=== PATIENT | female | born 1990 | race African-American/Black ===

== ENCOUNTER 2017-10-23 07:07 | Emergency (ER) | payer SELFPAY ==
[~2017-10-23] VITALS: Ht 170.2 cm; Wt 104.0 kg
[2017-10-23 11:48] VITALS: BP 130/82
== END 2017-10-23 12:00 | disposition home or self-care (01) ==
LOC: ER 08:46
DX: J09.X2 Influenza due to identified novel influenza A virus with other respiratory manifestations (principal)
CPT/HCPCS: 71045; 81025; 87070; 87430; 87804; 99285; Z7610